=== PATIENT | female | born 1955 | race Caucasian/White ===

== ENCOUNTER 2018-05-14 18:14 | Emergency (ER) | payer SELFPAY ==
[~2018-05-14] VITALS: Ht 154.9 cm; Wt 53.1 kg
[2018-05-14 18:26] VITALS: Ht 154.9 cm; Wt 53.1 kg
[2018-05-14 20:15] VITALS: BP 144/77
== END 2018-05-14 20:05 | disposition home or self-care (01) ==
LOC: ED 18:14
DX: S70.12XA Contusion of left thigh, initial encounter (principal); S80.02XA Contusion of left knee, initial encounter; S50.02XA Contusion of left elbow, initial encounter; S90.511A Abrasion, right ankle, initial encounter; M19.90 Unspecified osteoarthritis, unspecified site; V03.09XA Pedestrian with other conveyance injured in collision with car, pick-up truck or van in nontraffic accident, initial encounter; Y93.89 Activity, other specified; Y92.413 State road as the place of occurrence of the external cause; Y99.8 Other external cause status
CPT/HCPCS: 90715